=== PATIENT | male | born 1955 | race Caucasian/White ===

== ENCOUNTER 2018-06-25 17:16 | Emergency (ER) | payer OTHER, SELFPAY ==
--- NOTE | 2018-06-25 17:28 | DI.RAD.S_ITS ---
PROCEDURE: XR HAND LT MIN 3V INDICATIONS: injury TECHNIQUE: 3 views of the hand(s) acquired. COMPARISON: None. FINDINGS: Bones: Subtle, longitudinally oriented lucency through the distal phalanx of the left middle finger which may represent prominent trabeculation versus a nondisplaced fracture. Recommend correlation with physical examination for point tenderness in this region. Otherwise, no acute fractures or dislocations. Carpal bones are normally aligned. No suspicious bony lesions. Degenerative changes of the left hand involving the distal interphalangeal, proximal interphalangeal, and metacarpophalangeal joints. Soft tissues: No suspicious soft tissue calcifications. IMPRESSION: Subtle, longitudinally oriented lucency through the distal phalanx of the left middle finger which may represent prominent trabeculation versus a nondisplaced fracture. Recommend correlation with physical examination for point tenderness in this region. Otherwise, no acute fractures or dislocations. Dictated by: Geovanny Fernando M.D. on 06/25/2018 at 18:53 Approved by: Geovanny Fernando M.D. on 06/25/2018 at 18:58
[2018-06-25 17:36] VITALS: BP 158/96; PULSE 80; RESP 17; TEMP 36.7; O2SAT 98
--- NOTE | 2018-06-25 18:36 | ED_ITS ---
HPI - Extremity Injury (Upper) General Chief Complaint: Extremity Injury, Upper Stated Complaint: lt hand pain, swelling from hitting it w tool Time Seen by Provider: 06/25/18 18:35 Source: patient Mode of arrival: ambulatory Limitations: no limitations History of Present Illness HPI narrative: The patient is a building construction engineer. Two days ago, while in his work site, he was using a chisel. He was holding the chisel his left hand, using a sledgehammer in the right hand and striking the chisel. His whole slipped, he struck his left hand with a hammer. Two days later he has pain and swelling predominantly around the index MCP and the index MCP area. There is no wrist pain, thumb pain, or limited range of motion in the fingers. The fingers are unaffected. There is swelling and ecchymoses on the dorsal hand along the 2nd and 3rd MCP areas. There is no malrotation or obvious deformity. Review of Systems Review of Systems ROS Unobtainable: All systems reviewed & are unremarkable except as noted in HPI and below Constitutional Denies lethargy, Denies weakness and Reports other (No other injuries) Musculoskeletal Reports as per HPI, Reports numbness (Left dorsal hand.) and Reports tingling ( Left dorsal hand.) Integumentary/Breasts Denies rash and Reports other (Left hand contusion) Neurologic Reports numbness (Left dorsal hand.), Reports tingling (Left dorsal hand.) and Denies weakness [facility] Medical History No active medical problems (Acute) Surgical History No history of previous surgery (Acute) Social History additional social history: No significant social issues. Exam Initial Vital Signs Initial Vital Signs: Vital Signs Temperature 98.1 F 06/25/18 17:36 Pulse Rate 80 06/25/18 17:36 Respiratory Rate 17 06/25/18 17:36 Blood Pressure 158/96 H 06/25/18 17:36 Pulse Oximetry 98 06/25/18 17:36 Skin General: no rashes or lesions noted and other (Left hand contusion) Neuro General: awake, oriented x3, gait normal and no focal motor deficits Motor: muscle tone normal throughout Sensory Exam: other (Tingling to the left hand, no numbness) Extrem General: other (Contusion to the left hand along the sec metacarpal. Full range of motion in the MCPs. No bony deformity. No malrotation to the digits. Tendons are intact in the left hand. The left wrist is nontender.) Course Orders Ordered: ED Orders 06/25/18 17:28 XR hand LT min 3V Stat Vital Signs - 8 hr 06/25/18 19:02 Pulse Rate 76 Respiratory Rate 16 Blood Pressure [Right Arm] 154/100 H Pulse Oximetry 99 MDM - Extremity Injury (Upper) Imaging Data Left hand x-ray:: Attestation: I personally reviewed and interpreted this imaging study as follows: My impression: No evidence of fracture Discharge Plan Departure Patient Disposition: Home Clinical Impression: Contusion of hand, left Discharge Date/Time: 06/25/18 19:14 Interventions: ED Discharge Assessment Last Done: 06/25/18 19:13 Instructions: DI for Contusion Activity Restrictions/Additional Instructions: Use Tylenol or Advil as needed for pain. Be cautious with the use of her left hand at work until pain and swelling diminished. Recheck with her doctor in 2 weeks if not improving, return here if worse.
--- NOTE | 2018-06-25 18:56 | PC.NURSE ---
injury from sledgehammer, 2 days ago, left hand swelling, pt concern white spot protruding, concern for fracture hands, distal cms intact. pt deferred tetanus.
[2018-06-25 19:02] VITALS: BP 154/100; PULSE 76; RESP 16; O2SAT 99
== END 2018-06-25 19:14 | disposition home or self-care (01) ==
PROVIDERS: Emergency Provider Emergency Medicine
DX: S60.222A Contusion of left hand, initial encounter (principal); W22.8XXA Striking against or struck by other objects, initial encounter; Y99.0 Civilian activity done for income or pay
CPT/HCPCS: 73130; 99282; 99283